=== PATIENT | male | born 1965 | race Caucasian/White ===

== ENCOUNTER 2017-12-11 12:33 | Day surgery (SDC) | payer OTHER ==
[~2017-12-11] VITALS: Ht 175.3 cm; Wt 99.0 kg
[~2017-12-11 12:33] MED LIST: ATOR10; CLON.5; IBUP800; LANS30EC PO; Lamictal200 MG; PRAV20 PO; PROC10 PO
== END 2017-12-11 15:25 | disposition home or self-care (01) ==
LOC: ORSCSDS 12:33
PROVIDERS: Internal Medicine Gastroenterology
PROC: 0DBP8ZX Excision of Rectum, Via Natural or Artificial Opening Endoscopic, Diagnostic (ICD-10-PCS; principal; 2017-12-11 14:00)
DX: Z12.11 Encounter for screening for malignant neoplasm of colon (principal); K62.1 Rectal polyp; K64.8 Other hemorrhoids; K57.30 Diverticulosis of large intestine without perforation or abscess without bleeding; G47.33 Obstructive sleep apnea (adult) (pediatric); K21.9 Gastro-esophageal reflux disease without esophagitis; F41.9 Anxiety disorder, unspecified; Z79.899 Other long term (current) drug therapy
CPT/HCPCS: 88305; J7120

== ENCOUNTER 2022-08-12 08:53 | Day surgery (SDC) | payer OTHER ==
--- NOTE | 2022-08-12 12:07 | NUR ---
08/12/22 1207 Judith Fraser 100MLS OF URINE REMOVED FROM [facility]
--- NOTE | 2022-08-12 14:25 | NUR ---
Discharge instructions reviewed with patient. Patient verbalizes understanding. Copy given to patient to take home. DERMABOND INACT/ NO DRAINAGE. Patient States Post-Procedure ride home has been arranged. Discharged via wheelchair to private car for ride home
== END 2022-08-12 13:52 | disposition home or self-care (01) ==
LOC: ORSCMMR 08:53 → ORD 10:30 → ORSCMMR 13:52
PROVIDERS: Surgery
PROC: 0YUA4JZ Supplement Bilateral Inguinal Region with Synthetic Substitute, Percutaneous Endoscopic Approach (ICD-10-PCS; principal; 2022-08-12 10:00)
PROC: 8E0W4CZ Robotic Assisted Procedure of Trunk Region, Percutaneous Endoscopic Approach (ICD-10-PCS; principal; 2022-08-12 10:00)
DX: K40.20 Bilateral inguinal hernia, without obstruction or gangrene, not specified as recurrent (principal); G47.33 Obstructive sleep apnea (adult) (pediatric); K21.9 Gastro-esophageal reflux disease without esophagitis; Z79.899 Other long term (current) drug therapy
CPT/HCPCS: 49650; S2900; A9270; C1781; J0690; J1100; J1885; J2250; J2405; J2704; J2795; J3010; J7120